=== PATIENT | male | born 1990 | race Caucasian/White ===

== ENCOUNTER 2024-05-25 09:08 | Emergency (ER) | payer MEDICAID ==
[2024-05-25] MEDS ORDERED: Acetaminophen 500 MG TAB ONE (09:26)
== END 2024-05-25 10:29 | disposition home or self-care (01) ==
LOC: CSHERS 09:08
DX: S09.90XA Unspecified injury of head, initial encounter (principal); I10 Essential (primary) hypertension; W01.0XXA Fall on same level from slipping, tripping and stumbling without subsequent striking against object, initial encounter
CPT/HCPCS: 70450; 72125

== ENCOUNTER 2025-09-12 12:08 | Emergency (ER) | payer MEDICAID ==
[2025-09-12] MEDS ORDERED: Lidocaine 1% (PF) 30 ML VIAL ONE (13:25)
== END 2025-09-12 14:30 | disposition home or self-care (01) ==
LOC: CSHERS 12:08
DX: S61.217A Laceration without foreign body of left little finger without damage to nail, initial encounter (principal); I10 Essential (primary) hypertension; F17.290 Nicotine dependence, other tobacco product, uncomplicated; Z23 Encounter for immunization; W26.8XXA Contact with other sharp object(s), not elsewhere classified, initial encounter
CPT/HCPCS: 12001; 90471; 90715; J2003